=== PATIENT | female | born 1930 | race Caucasian/White ===

== ENCOUNTER 2016-08-25 10:11 | Inpatient (IN) | payer MEDICARE ==
--- NOTE | ~2016-08-25 | HP ---
History And Physical [facility] [address] [place]. [address] NAME: DREW AGUILAR : 32 STATUS : ADM IN [facility]#: [id number] AGE: 86 ADM/REG DATE : 08/25/16 MR#: [id number] REPORT SERV DATE: 08/25/16 DICTATED BY: LETY HUMMEL DATE: 08/25/16 REPORT STATUS : Draft TRANSCRIBED BY: MODL DATE: 08/25/16 DATE OF ADMISSION: 08/25/2016 CHIEF COMPLAINT: Shortness of breath. HISTORY OF PRESENT ILLNESS: Ms. Aguilar is an 86-year-old female with a history of ischemic cardiomyopathy and acute on chronic systolic and diastolic heart failure. She was evaluated in the ER earlier this morning after having a two-day history of progressive shortness of breath, orthopnea, PND, and some generalized dyspnea on exertion. She did not have peripheral edema. 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 A conservative course was elected for following this lesion and the patient has had continued significant difficulty with exacerbations of CHF which have been managed as an outpatient since that time. She also has a history of known coronary artery disease with ischemic cardiomyopathy. She has had no history of significant dysrhythmia. She has had compliance with her medications. Although her diet is somewhat significantly noncompliant with a fair bit of free water and sodium added to her diet. She denies any chest pain, palpitations, fevers, chills, significant cough, or productivity of cough. She has had no lower extremity edema. She has had no syncope or near syncope. She has diminished her Lasix dose recently to one in the morning, but she has had some significant weight gain noted as well. Overall, her shortness of breath has been consistent with a class 3 and today a class 4 [place] [employer] CHF pattern. 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 MEDICATIONS: Toprol-XL 25 mg p.o. q.a.m.; irbesartan 300 mg one p.o. q.a.m., this has recently been changed to one-half tablet per day; Plavix 75 mg p.o. q.a.m.; aspirin 81 mg p.o. q.a.m.; citalopram 40 mg per day; pantoprazole 40 mg at bedtime, Breo metered dose inhaler at one puff p.o. q.a.m.; Lasix has been 40 mg b.i.d., this has recently been changed to q.a.m. as noted. ALLERGIES: INCLUDE NKDA. SOCIAL HISTORY: She is a nonsmoker, although she has been a very distant smoker. She has not utilized alcohol. 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 She has one daughter who is an RN. FAMILY HISTORY: Positive for congestive cardiomyopathy as well as coronary artery disease History And Physical [address] [address] NAME: DREW AGUILAR : 32 STATUS : ADM IN [facility]#: [id number] AGE: 86 ADM/REG DATE : 08/25/16 MR#: [id number] REPORT SERV DATE: 08/25/16 DICTATED BY: LETY HUMMEL DATE: 08/25/16 REPORT STATUS : Draft TRANSCRIBED BY: MODL DATE: 08/25/16 and hypertension and hyperlipidemia. REVIEW OF SYSTEMS: A 10-system review is entirely negative except as noted above. PHYSICAL EXAMINATION: GENERAL: Awake, alert, oriented x4, but very fatigued in appearance overall. She is not utilizing accessory musculature. There is no audible wheeze. VITAL SIGNS: BP 132/60, pulse 52, with telemetry showing a sinus rhythm, respiratory rate 24 to 26, SaO2 88% on room air, now 97-98% on 3 L by nasal cannula O2. HEENT: PERRLA. EOMI. Oropharynx clear without evidence of thrush. EACs and TMs are negative bilaterally. NECK: Supple without mass or thyromegaly. No bruit. A right-sided incisional scar is noted, well healed. LUNGS: There is no accessory musculature use noted as evaluated above. The patient has diminished breath sounds at the left base with rales to the one-half lower lung de leon. The right lung reveals rales to the one-third lower lung de leon. There is no audible wheeze. CV: RRR without MGR. ABDOMEN: Soft, nontender. Bowel sounds normoactive. No HSM. Obese. EXTREMITIES: Without clubbing, cyanosis, edema. Pulses are diminished bilaterally at the dorsalis pedis to 1+. Posterior tibialis is trace bilaterally. Data is pending at this time. INITIAL ASSESSMENT: 1. Congestive cardiomyopathy. Acute on chronic with diastolic and systolic dysfunction secondary to ischemic cardiomyopathy, [place] [employer] class 3-4 with baseline at 2 to 3. 2. Diabetes mellitus type 2. 3. Coronary artery disease, status post PCI. 4. Peripheral vascular disease, status post right carotid endarterectomy. 5. 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 6. Hypertension. 7. CA of colon, status post resection right colon. 8. Left pleural effusion. 9. Asymptomatic cholelithiasis. 10.Obstructive sleep apnea syndrome. 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 PLAN: We will check troponin levels, CBC, CPKs, EKG, CMP. O2, diuresis carefully with Lasix, and we will add Zaroxolyn. Repeat echocardiography. Probably order CT of chest in the near future to evaluate the effusion, but we will first check chest x-ray with left lateral decubitus positioning. Continue ARB and Plavix and aspirin therapy at this time as well as beta blockade. We will discuss with family at length. History And Physical [address] [place]. [address] NAME: DREW AGUILAR : 34 STATUS : ADM IN [facility]#: [id number] AGE: 86 ADM/REG DATE : 08/25/16 MR#: [id number] REPORT SERV DATE: 08/25/16 DICTATED BY: LETY HUMMEL DATE: 08/25/16 REPORT STATUS : Draft TRANSCRIBED BY: NEO DATE: 08/25/16 CLINT/NEO Lety Hummel M.D. / [id number] CC: Lety Hummel M.D.
--- NOTE | ~2016-08-25 | CN ---
Consultation Report [facility] [address] [place]. [address] NAME: DREW AGUILAR : 32 STATUS : ADM IN PAT#: [id number] AGE: 86 ADM/REG DATE : 08/25/16 MR#: [id number] REPORT SERV DATE: 08/25/16 DICTATED BY: PK CAM DATE: 08/25/16 REPORT STATUS : Draft TRANSCRIBED BY: MODL DATE: 08/25/16 CARDIOLOGY CONSULTATION DATE OF CONSULTATION: 08/25/2016 REASON FOR CONSULTATION: Heart failure. HISTORY OF PRESENT ILLNESS: Ms. Aguilar is an 86-year-old female with known coronary artery disease and an ischemic cardiomyopathy, EF 40%-45%, who was admitted by her PCP with worsening exertional shortness of breath consistent with class III symptoms. On arrival to the ER, she was in sinus rhythm. Her BNP was elevated at 690. She was having no symptoms of chest pain/angina. She denies palpitations or syncope. She has had two to three pillow orthopnea for the past several weeks. She has had no significant lower extremity edema. She denies any palpitations, near syncope, or syncope. Of note, recent decompensation has occurred in the setting of a recent decrease in her usual home Lasix dose. REVIEW OF SYSTEMS: Pertinent positives and negatives are as outlined above, all others are negative. PAST MEDICAL HISTORY: 1. CAD/PCI. 2. Ischemic cardiomyopathy, EF 40% to 45%. 3. Chronic systolic heart failure, NYHA class II/III. 4. Hypertension. 5. Hyperlipidemia. 6. Diabetes mellitus type 2. 7. 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 8. Abnormal echocardiogram, eccentric/atypical mitral degenerative changes. CURRENT MEDICATIONS: 1. Toprol-XL 25 mg daily. 2. Irbesartan 300 mg daily. 3. Plavix 75 mg daily. 4. Aspirin 81 mg daily. 5. Citalopram as directed. 6. Pantoprazole 40 mg at bedtime. 7. Breo metered dose inhaler as directed. 8. Lasix 20 mg twice daily. ALLERGIES: NO KNOWN DRUG ALLERGIES. SOCIAL HISTORY: She does not use tobacco products or consume alcohol. FAMILY HISTORY: Significant for CAD. Consultation Report [facility] [address] [place]. [address] NAME: DREW AGUILAR : 32 STATUS : ADM IN PAT#: [id number] AGE: 86 ADM/REG DATE : 08/25/16 MR#: [id number] REPORT SERV DATE: 08/25/16 DICTATED BY: PK CAM DATE: 08/25/16 REPORT STATUS : Draft TRANSCRIBED BY: NEO DATE: 08/25/16 PHYSICAL EXAMINATION: VITALS: Temperature is afebrile, pulse is 70, respirations 16, blood pressure is 160/80. GENERAL: Well-developed female, who is somewhat uncomfortable at rest with mild dyspnea. HEENT: Sclerae anicteric, mucous membranes moist and without lesions. NECK: No jugular venous distention. No hepatojugular reflux, carotid upstrokes 2+ and symmetric, there are no carotid or subclavian bruit. LUNGS: Moderately decreased breath sounds throughout with scant expiratory wheezes and no crackles. CARDIOVASCULAR: Regular with distant S1 and S2. No audible S3. No audible murmurs. No parasternal lift. PMI is not palpable. ABDOMEN: Obese, soft, and nontender. Bowel sounds positive and normoactive. PULSES: Radial and dorsalis pedis pulses are all 1+ and symmetric. EXTREMITIES: Warm and without edema. SKIN: No clubbing or cyanosis, no rashes or lesions. ACCESSORY DATA: ECG shows sinus rhythm at 67 beats per minute. There was a nonspecific interventricular conduction delay. There is an old inferolateral infarct with anterolateral ST changes consistent with ischemia. Initial troponin was 0.09, second was 0.10. IMPRESSION: 1. Acute on chronic systolic heart failure. 2. Type 2 myocardial infarction, demand ischemic event. 3. Coronary artery disease, status post PCI. 4. Ischemic cardiomyopathy, EF 40%-45%. 5. Hypertension. 6. Diabetes mellitus, type 2. 7. Hyperlipidemia. 8. History of transient ischemic attack. PLAN: Agree with IV diuresis and Zaroxolyn, then recommend changing to p.o. Demadex 20 mg daily. We will ask respiratory therapy to eval and treat per bronchodilator protocol. Close followup with a.m. labs with aggressive diuresis and close followup of I's and O's. She has been statin intolerant, continue beta-viviana therapy, ARB, and dual antiplatelet therapy as prescribed. She will have a repeat echocardiogram to reassess cardiac dimensions and LVEF as well as atypical/eccentric mitral degenerative changes. We will continue follow with you. CARO/NEO Pk Cam M.D. Consultation Report [address] [place]. [address] NAME: DREW AGUILAR : 32 STATUS : ADM IN PAT#: [id number] AGE: 86 ADM/REG DATE : 08/25/16 MR#: [id number] REPORT SERV DATE: 08/25/16 DICTATED BY: PK CAM. DATE: 08/25/16 REPORT STATUS : Draft TRANSCRIBED BY: NEO DATE: 08/25/16 / [id number] CC: Eulalio Barger M.D.
[~2016-08-25 10:11] MED LIST: ASA5GR PO; ASAB PO; BREO ELLIPTA INH; CELEXA20 PO; CELEXA40 MG PO; CITRUCELSF; CO Q-10100 MG PO; COZ50 PO; CRESTOR10 PO; CRESTOR5 MG PO; FISH-EPA1000 MG PO; GARLIC; GLUCPH PO; Garlic PO; IRON160 MG PO; KDUR20 PO; L40 PO; LANTUS SC; LOP25 PO; LOVAZA1 GM PO; MACROBID PO; OCUVITE PO; PLAVIX PO; PRESERVISION A1 EACH PO; PRILOSEC40 MG PO; TOPXL25 PO; VITAMIN D1000 UNI1 PO; VITAMIN E; ZESTORETIC PO; ZESTORETIC1 TA1 PO; ZESTRIL20 MG PO; [UNRECOGNIZED DRUG - OTHER]; [UNRECOGNIZED DRUG - SUPPLY]
[2016-08-25 13:58] LABS: TROPONIN I 0.1 NG/ML (<0.05)
[2016-08-25 18:20] LABS: TROPONIN I 0.1 NG/ML (<0.05)
[2016-08-26 01:00] LABS: TROPONIN I 0.07 NG/ML (<0.05)
[2016-08-26 05:18] LABS: BASOPHILS 0.3 %; BASOPHILS ABSOLUTE 0.03 10/3/uL (0.0-0.16); EOSINOPHILS 0.8 %; EOSINOPHILS ABSOLUTE 0.08 10/3/uL (0.0-0.53); HEMATOCRIT 35.9 % (36.0-48.0); HEMOGLOBIN 12.2 g/dL (12.0-16.0); IMMATURE GRANULOCYTES 0.4 %; IMMATURE GRANULOCYTES ABSOLUTE 0.04 10/3/uL (0.0-0.11); LYMPHOCYTES 15.9 %; LYMPHOCYTES ABSOLUTE 1.61 10/3/uL (0.67-4.30); MEAN CORPUSCULAR VOLUME 79.4 fL (80-100); MEAN PLATELET VOLUME 9.9 fL (9.2-13.0); MONOCYTES 16.1 %; MONOCYTES ABSOLUTE 1.63 10/3/uL (0.21-1.20); NEUTROPHILS 66.5 %; NEUTROPHILS ABSOLUTE 6.73 10/3/uL (2.02-8.40); PLATELET COUNT 235 10/3/uL (150-400); RBC DISTRIBUTION WIDTH 15.5 % (12.0-16.0); RED CELL COUNT 4.52 10/6/uL (4.0-5.6); WHITE BLOOD CELLS 10.1 10/3/uL (4.5-10.5)
[2016-08-26 05:19] LABS: MANUAL DIFF NO %
[2016-08-26 05:29] LABS: CALCIUM, SERUM 8.4 MG/DL (8.5-10.4); CHLORIDE, SERUM 100 MMOL/L (96-112); CO2 (CARBON DIOXIDE) 25 MMOL/L (24-34); CREATININE 1.48 MG/DL (0.55-1.02); GFR AFRICAN AMERICAN 37 ML/MIN (>=60); GFR NON AFRICAN AMERICAN 32 ML/MIN (>=60); GLUCOSE, SERUM 149 MG/DL (60-99); POTASSIUM, SERUM 3.9 MMOL/L (3.5-5.3); SODIUM, SERUM 135 MMOL/L (135-148)
[2016-08-26 05:31] LABS: BUN (BLOOD UREA NITROGEN) 41 MG/DL (6-23)
[2016-08-27 07:04] LABS: BASOPHILS 0.5 %; BASOPHILS ABSOLUTE 0.04 10/3/uL (0.0-0.16); EOSINOPHILS 0.7 %; EOSINOPHILS ABSOLUTE 0.06 10/3/uL (0.0-0.53); HEMATOCRIT 37.6 % (36.0-48.0); HEMOGLOBIN 12.3 g/dL (12.0-16.0); IMMATURE GRANULOCYTES 0.5 %; IMMATURE GRANULOCYTES ABSOLUTE 0.04 10/3/uL (0.0-0.11); LYMPHOCYTES ABSOLUTE 0.82 10/3/uL (0.67-4.30); MANUAL DIFF NO %; MEAN CORPUS HGB CONC 32.7 g/dL (32.0-36.0); MEAN CORPUSCULAR HEMOGLOB 26.7 pg (26.0-34.0); MEAN CORPUSCULAR VOLUME 81.6 fL (80-100); MEAN PLATELET VOLUME 9.7 fL (9.2-13.0); NEUTROPHILS 71.3 %; NEUTROPHILS ABSOLUTE 5.86 10/3/uL (2.02-8.40); NUCLEATED RED BLOOD CELLS 0.2 /100WBC (0-0); PLATELET COUNT 212 10/3/uL (150-400); RBC DISTRIBUTION WIDTH 15.7 % (12.0-16.0); RED CELL COUNT 4.61 10/6/uL (4.0-5.6); WHITE BLOOD CELLS 8.2 10/3/uL (4.5-10.5)
[2016-08-27 07:18] LABS: CALCIUM, SERUM 7.9 MG/DL (8.5-10.4); CHLORIDE, SERUM 93 MMOL/L (96-112); CO2 (CARBON DIOXIDE) 21 MMOL/L (24-34); CREATININE 1.84 MG/DL (0.55-1.02); GFR AFRICAN AMERICAN 29 ML/MIN (>=60); GFR NON AFRICAN AMERICAN 25 ML/MIN (>=60); GLUCOSE, SERUM 141 MG/DL (60-99); POTASSIUM, SERUM 3.7 MMOL/L (3.5-5.3); SODIUM, SERUM 131 MMOL/L (135-148)
[2016-08-27 07:19] LABS: BUN (BLOOD UREA NITROGEN) 59 MG/DL (6-23)
[2016-08-27] MEDS ORDERED: AVAPRO300 MG PO (10:02)
[2016-08-27] MEDS ORDERED: LEVAQUIN750 MG PO (10:04)
== END 2016-08-27 13:04 | disposition home or self-care (01) | DRG 291 ==
LOC: 1SO 10:11
PROVIDERS: Internal Medicine; Internal Medicine Cardiovascular Disease
DX: I13.0 Hypertensive heart and chronic kidney disease with heart failure and stage 1 through stage 4 chronic kidney disease, or unspecified chronic kidney disease (principal); I50.43 Acute on chronic combined systolic (congestive) and diastolic (congestive) heart failure; J18.9 Pneumonia, unspecified organism; E11.22 Type 2 diabetes mellitus with diabetic chronic kidney disease; J44.9 Chronic obstructive pulmonary disease, unspecified; I73.9 Peripheral vascular disease, unspecified; I05.9 Rheumatic mitral valve disease, unspecified; I25.5 Ischemic cardiomyopathy; I25.10 Atherosclerotic heart disease of native coronary artery without angina pectoris; E78.5 Hyperlipidemia, unspecified; Z68.29 Body mass index [BMI] 29.0-29.9, adult; E66.9 Obesity, unspecified; N18.2 Chronic kidney disease, stage 2 (mild); G47.33 Obstructive sleep apnea (adult) (pediatric); K80.20 Calculus of gallbladder without cholecystitis without obstruction; F17.211 Nicotine dependence, cigarettes, in remission; Z91.19 Patient's noncompliance with other medical treatment and regimen; Z79.02 Long term (current) use of antithrombotics/antiplatelets; Z79.82 Long term (current) use of aspirin; Z79.899 Other long term (current) drug therapy; I25.2 Old myocardial infarction; Z86.73 Personal history of transient ischemic attack (TIA), and cerebral infarction without residual deficits; Z85.038 Personal history of other malignant neoplasm of large intestine; Z90.49 Acquired absence of other specified parts of digestive tract; Z98.61 Coronary angioplasty status; Z88.5 Allergy status to narcotic agent
CPT/HCPCS: 36600; 71020; 71035; 80048; 80053; 82550; 82805; 82962; 83036; 83735; 83880; 84484; 85025; 85610; 85730; 87040; 93005; 94640; 96374; 99285; A9270-GY; C8929; J2405; Q9957

== ENCOUNTER 2016-10-21 04:31 | Inpatient (IN) | payer MEDICARE ==
--- NOTE | ~2016-10-21 | CN ---
Consultation Report [facility] [address] [place]. [address] NAME: DREW REDDY : 32 STATUS : ADM IN PAT#: [id number] AGE: 86 ADM/REG DATE : 10/21/16 MR#: [id number] REPORT SERV DATE: 10/22/16 DICTATED BY: ADRIAN NEWTON DATE: 10/22/16 REPORT STATUS : Draft TRANSCRIBED BY: MODL DATE: 10/22/16 CONSULTATION NOTE DATE OF CONSULTATION: 10/21/2016 ATTENDING HELIUM ARC WELDER: Eligio Epstein M.D. ENTRY LEVEL ACCOUNT EXECUTIVE: Brandon Urena M.D. REASON FOR CONSULTATION: Chest pain, recent non-ST elevation myocardial infarction, consideration for possible coronary artery bypass grafting. CHIEF COMPLAINT: Chest pain. HISTORY OF PRESENT ILLNESS: This is an 86-year-old female, who in most of her life has been quite active, but notes that over the past five months she has had a marked decline in her exercise tolerance and has had chest discomfort, pressure, tightness, breathlessness, and fatigue that has interfered with her activities of daily living. On Thursday night, she apparently had onset of chest pain associated with nausea, vomiting, and shortness of breath. Her brought her to the hospital and she was found to have elevated troponin I and abnormal EKG with T-wave changes in the anterolateral and inferior leads. She was hospitalized, and yesterday underwent coronary arteriogram, which demonstrated significant flow-limiting three-vessel coronary artery disease with 90% right coronary artery stenosis, tandem left anterior descending 80% stenosis both before and after prior stent, and chronic total occlusion of the circumflex. She had echocardiogram which showed ejection fraction of 50% which had improved from her prior echo, and no significant valvulopathy. We were asked to see for possible coronary artery bypass grafting and associated risks. This was discussed with the patient, her and daughter in the room today. PRIOR MEDICAL HISTORY: 1. Coronary artery disease and ischemic cardiomyopathy. 2. Chronic systolic and diastolic heart failure. 3. Chronic kidney disease stage III. 4. Diabetes mellitus type 2. 5. Hyperlipidemia. 6. Hypertension. 7. History of colon cancer stage IIB, resected. 8. Cataracts. 9. Macular degeneration. 10.Frequent urinary tract infections. PRIOR SURGICAL HISTORY: Significant for prior tonsillectomy, bladder tack in 1998, previous PCI with stent to the left anterior descending in 2010, previous hysterectomy 1971, carotid endarterectomy 2008, thoracentesis in 2016, previous partial colectomy for colon cancer in Consultation Report [facility] [address] [place]. [address] NAME: DREW REDDY : 32 STATUS : ADM IN PAT#: [id number] AGE: 86 ADM/REG DATE : 10/21/16 MR#: [id number] REPORT SERV DATE: 10/22/16 DICTATED BY: ADRIAN NEWTON DATE: 10/22/16 REPORT STATUS : Draft TRANSCRIBED BY: NEO DATE: 10/22/[address] Kalpesh Ch. ALLERGIES: MORPHINE, WHICH CAUSES HER TO HAVE ITCHING AND FEEL WEIRD. MEDICATIONS: Aspirin 81 mg p.o. q.a.m., vitamin D 1000 units p.o. at bedtime, Celexa 40 mg p.o. q.a.m., clopidogrel 75 mg p.o. daily, furosemide 40 mg p.o. q.a.m., furosemide 40 mg p.o. q.48 hours at bedtime, Avapro 300 mg p.o. q.a.m., Citrucel 19 g p.o. daily, Toprol-XL 25 mg p.o. q.a.m., Prilosec 40 mg p.o. at bedtime, K-Dur 20 mEq p.o. q.a.m., Breo inhaler one puff inhaled daily, and multivitamins one p.o. b.i.d. FAMILY HISTORY: Positive for coronary artery disease, hypertension, hyperlipidemia. 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 She denies smoking history. She denies use of alcohol or illicit drugs. She has four living children, one son and three daughters. One daughter is a registered nurse. REVIEW OF SYSTEMS: GENERAL: Positive for progressive fatigue and shortness of breath, exercise intolerance, negative for fevers, chills, night sweats, recent weight loss. ENT: Positive for macular degeneration, previous cataract surgery. Denies any problems eating, chewing, or swallowing. RESPIRATORY: Positive for shortness of breath, dyspnea on exertion of walking on level ground. She denies any productive cough, she denies any hemoptysis. Denies any wheezing. CV: Positive for chest pain, tightness, pressure that radiates into her back and up into her neck, also positive for some orthopnea and prior pleural effusions and heart failure. Negative for paroxysmal nocturnal dyspnea. Negative for palpitations, negative for heart murmur. She denies any recent swelling of her lower extremities. GI: Positive for colon cancer. Negative for GI bleeding. Negative for diarrhea or constipation. : Positive for frequent urinary tract infections, chronic kidney disease followed by Dr. Brandon Urena. MUSCULOSKELETAL: Positive for arthritis. HEME/ONC: As above. Negative for blood clots or easy bleeding or bruising. ENDOCRINE: Positive for diabetes, although she denies this. VASCULAR: Positive for previous carotid endarterectomy. NEURO: Positive for prior stroke with weakness that resolved over a period of two weeks. Otherwise, negative or as above. PHYSICAL EXAMINATION: GENERAL: She is a pleasant obese white female, in no acute distress, sitting up in bed. Her height is 167.64 cm, weight 80.286 kg. VITAL SIGNS: Blood pressure 150/70, temperature 98.2, pulse 80 and regular, respirations 16 regular and unlabored. HEENT: Normocephalic, atraumatic. Pupils are equal, round, reactive to light and Consultation Report [place] [id number] [facility] [place]. [address] NAME: DREW REDDY : 32 STATUS : ADM IN [facility]#: [id number] AGE: 86 ADM/REG DATE : 10/21/16 MR#: [id number] REPORT SERV DATE: 10/22/16 DICTATED BY: ADRIAN NEWTON DATE: 10/22/16 REPORT STATUS : Draft TRANSCRIBED BY: MODL DATE: 10/22/16 accommodation. Sclerae are clear, conjunctivae pink. Oral and buccal mucosa are pink and moist, teeth are in good condition with several fillings noted. Mallampati class IV airway. NECK: Supple, no restricted range of motion, no carotid bruits, no jugular venous distention. CHEST: Clear to auscultation, no use of accessory muscles, no chest wall tenderness. She has moderate thoracic kyphosis. BREASTS: Not examined. CV: Regular rate and rhythm without murmur or rub. She has palpable and symmetric central and peripheral pulses, although pulses are moderately to severely diminished in the feet, they are palpable in the posterior tibials. No lower extremity edema, no varicosities. ABDOMEN: Soft, obese, nontender with normoactive bowel sounds. No hepatosplenomegaly. No abnormal pulsations. /RECTAL: Declined. MUSCULOSKELETAL: Moderate thoracic kyphosis, no scoliosis, no asymmetry. NEURO: She is alert, oriented, and moves all extremities. She has bilateral symmetric upper and lower extremity strength. She is able to ambulate without assistance. Her mood is appropriate and she has no focal deficits or tremors. DATA: Her coronary arteriogram which I reviewed today, echocardiogram results which do not show any evidence of prior mitral leaflet mass. Her EKG showing T-wave changes in the inferior and anterolateral leads consistent with ischemia. Her troponin I most recently was 0.73. BNP was 142.1 on admission. CBC shows WBC 6.6, hemoglobin 11.7 g, hematocrit 35.4%, platelets 219,000. Her electrolyte profile shows sodium 138, potassium 4.7, chloride 104, CO2 of 23, BUN 40, creatinine 1.72, and nonfasting glucose 1.53. Her prior hemoglobin A1c was 7. Carotid ultrasound results are pending. IMPRESSION: Three-vessel flow-limiting coronary artery disease in an 86-year-old female with multiple comorbid conditions. We were asked to see for possible coronary artery bypass grafting and associated risks. We talked with her this morning about possible coronary artery bypass grafting, usual perioperative course, indications, benefits, and serious risks, which include but are not limited to things such as bleeding, need for blood or blood product transfusion and their attendant risks, infection including deep sternal infection, mediastinitis, damage to the kidneys including kidney failure and dialysis, damage to the liver or the lungs, heart attack, stroke, abnormal heart rhythm which occurs in about 1/3 patients, and even . The Society of Thoracic Surgeons database was used for risk prediction and mortality risk was predicted at 5.351%, morbidity or mortality of 30.964% with acute kidney injury or kidney failure topping the list at approximately 20% risk. This was discussed with the patient and her family today. She would like to be discharged to home and consider her options. I encouraged her to discuss possible bypass grafting and its effect on the kidneys further with her material coordinator, Dr. Brandon Urena, and also to talk with Dr. Barger regarding his thoughts. I have taken the liberty of arranging an appointment for her to see Dr. Parsons and discuss this further on 11/27/2016 at 3 p.m. We appreciate very much the opportunity to participate in her care. Consultation Report [facility] [address] [place] [address] NAME: DREW REDDY : 32 STATUS : ADM IN PAT#: [id number] AGE: 86 ADM/REG DATE : 10/21/16 MR#: [id number] REPORT SERV DATE: 10/22/16 DICTATED BY: ADRIAN NEWTON DATE: 10/22/16 REPORT STATUS : Draft TRANSCRIBED BY: MODL DATE: 10/22/16 MSL/MODL Adrian Newton, N.P. / [id number] CC: Geena Headley M.D.
--- NOTE | ~2016-10-21 | PRECARD ---
&P [address] [address] NAME: EMMA AGUILAR : 32 STATUS : ADM [place] PAT#: [id number] AGE: 86 ADM/REG DATE : 10/21/16 MR#: [id number] REPORT SERV DATE: 10/21/16 DICTATED BY: JOSE EPSTEIN. DATE: 10/21/16 REPORT STATUS : Draft TRANSCRIBED BY: NEO DATE: 10/21/16 DATE OF ADMISSION: 10/21/2016 HISTORY OF PRESENT ILLNESS: Ms Emma Aguilar is an 86-year-old woman admitted with chest pain. Ms Aguilar has known coronary artery disease. She had a drug-eluting stent placed to the LAD in October 2010. Her most recent perfusion study found to have 15 demonstrated no ischemia. She awoke last night with chest discomfort. She had chest pressure which was similar to the discomfort she had when her stent was placed. The discomfort lasted for perhaps 4 hours. She is unable to identify any precipitating, exacerbating factors. Not associated with exertion. She has no orthopnea or PND. No palpitations. Temperature improved, though not resolved. PAST MEDICAL HISTORY: 1. Hyperlipidemia. 2. Diabetes. 3. Hypertension. 4. Prior stroke. HOME MEDICATIONS: Please see the home med list which I have reviewed: 1. Aspirin. 2. Vitamin D. 3. Celexa. 4. Plavix. 5. Lasix. 6. Avapro. 7. Methylcellulose. 8. Metoprolol. 9. Omeprazole. 10.Potassium. 11.Breo inhaler. 12.Vitamin C. SOCIAL HISTORY: No alcohol or tobacco. FAMILY HISTORY: Noncontributory. REVIEW OF SYSTEMS: A complete review of systems obtained, pertinent negative and remarkable, except as noted above and below, all systems addressed. PHYSICAL EXAMINATION: Bp: About 115/50. Heart Rate: About 70. GENERAL: Comfortable, in no acute distress. &P [address] [address] NAME: EMMA AGUILAR : 32 STATUS : ADM [place] PAT#: [id number] AGE: 86 ADM/REG DATE : 10/21/16 MR#: [id number] REPORT SERV DATE: 10/21/16 DICTATED BY: JOSE EPSTEIN DATE: 10/21/16 REPORT STATUS : Draft TRANSCRIBED BY: NEO DATE: 10/21/16 HEENT: No xanthelasma; lips without cyanosis LUNGS: Clear to auscultation, no wheezes, rales or rhonchi; good breath sounds. COR: No JVD or hepatojugular reflux, no murmurs, rubs or gallops, impulse mid clavicular line without carotid or abdominal bruits; normal S1 and S2. ABDOMEN: Bowel sounds positive, normal activity, without tenderness, masses or hepatosplenomegaly. EXTREMITIES: No edema, cyanosis. SKIN: Normal turgor. Ms: Normal muscle strength, without kyphosis/scoliosis. NEURO/PSYCH: Alert and oriented times 4, no apparent anxiety or depression. LABORATORY DATA: BUN is 40, creatinine 1.7. Troponin 0.16. BNP 142. EKG: Sinus rhythm with diffuse ST changes noted previously. ASSESSMENT: Ms. Aguilar is an 86-year-old woman with known coronary artery disease with recurrent chest discomfort. Her discomfort is similar to the prior discomfort. We will proceed with catheterization, possible angioplasty. I discussed the risks, benefits, and alternatives with Ms. gAuilar. She understands and agrees to proceed. DENNYS/NEO Jose Epstein M.D. / [id number] CC: Geena Headley M.D.
[2016-10-21 03:33] LABS: BUN (BLOOD UREA NITROGEN) 40 MG/DL (6-23); CALCIUM, SERUM 9.1 MG/DL (8.5-10.4); CHLORIDE, SERUM 104 MMOL/L (96-112); CO2 (CARBON DIOXIDE) 23 MMOL/L (24-34); CREATININE 1.72 MG/DL (0.55-1.02); GFR AFRICAN AMERICAN 31 ML/MIN (>=60); GFR NON AFRICAN AMERICAN 27 ML/MIN (>=60); GLUCOSE, SERUM 153 MG/DL (60-99); POTASSIUM, SERUM 4.7 MMOL/L (3.5-5.3); SODIUM, SERUM 138 MMOL/L (135-148)
[2016-10-21 03:34] LABS: CHEST PAIN PROFILE TAT 0 Hrs 22 Mins; TROPONIN I 0.16 NG/ML (<0.05)
[2016-10-21 04:00] LABS: BASOPHILS 1.2 %; BASOPHILS ABSOLUTE 0.07 10/3/uL (0.0-0.16); EOSINOPHILS 3.7 %; EOSINOPHILS ABSOLUTE 0.22 10/3/uL (0.0-0.53); ER CBC TAT 0 Hrs 04 MinsNP; HEMATOCRIT 38.2 % (36.0-48.0); HEMOGLOBIN 12.5 g/dL (12.0-16.0); IMMATURE GRANULOCYTES 0.3 %; IMMATURE GRANULOCYTES ABSOLUTE 0.02 10/3/uL (0.0-0.11); LYMPHOCYTES 32.5 %; LYMPHOCYTES ABSOLUTE 1.93 10/3/uL (0.67-4.30); MANUAL DIFF NO %; MEAN CORPUS HGB CONC 32.7 g/dL (32.0-36.0); MEAN CORPUSCULAR HEMOGLOB 26.3 pg (26.0-34.0); MEAN CORPUSCULAR VOLUME 80.3 fL (80-100); MEAN PLATELET VOLUME 9.4 fL (9.2-13.0); MONOCYTES 16.2 %; MONOCYTES ABSOLUTE 0.96 10/3/uL (0.21-1.20); NEUTROPHILS 46.1 %; NEUTROPHILS ABSOLUTE 2.74 10/3/uL (2.02-8.40); PLATELET COUNT 240 10/3/uL (150-400); RBC DISTRIBUTION WIDTH 15.3 % (12.0-16.0); RED CELL COUNT 4.76 10/6/uL (4.0-5.6); WHITE BLOOD CELLS 5.9 10/3/uL (4.5-10.5)
[2016-10-21 04:07] LABS: INTERNATIONAL NORMAL RATI 1.1 UNITS (-); PARTIAL THROMBO TIME 25.5 SEC (22.5-37.2); PROTIME (NOT ORD) 13.8 SEC (12.0-14.5)
[~2016-10-21 04:31] MED LIST changes: +AVAPRO300 MG PO; +LEVAQUIN750 MG PO
[2016-10-21] MEDS ORDERED: PRILOSEC40 MG PO (05:38)
[2016-10-21] MEDS ORDERED: CELEXA40 MG PO (05:38)
[2016-10-21] MEDS ORDERED: KDUR20 PO (05:38)
[2016-10-21] MEDS ORDERED: ASAB PO (05:38)
[2016-10-21] MEDS ORDERED: L40 PO ×2 (05:39→05:40)
[2016-10-21] MEDS ORDERED: AVAPRO300 MG PO (05:40)
[2016-10-21] MEDS ORDERED: VITAMIN D1000 UNI1 PO (05:41)
[2016-10-21] MEDS ORDERED: PRESERVISION A1 EAC1 PO (05:41)
[2016-10-21] MEDS ORDERED: PLAVIX PO (05:41)
[2016-10-21] MEDS ORDERED: BREO INH (05:42)
[2016-10-21] MEDS ORDERED: CITRUCELSF PO (05:43)
[2016-10-21] MEDS ORDERED: TOPXL25 PO (05:44)
[2016-10-22 06:34] LABS: BASOPHILS 0.9 %; BASOPHILS ABSOLUTE 0.06 10/3/uL (0.0-0.16); EOSINOPHILS 5.8 %; EOSINOPHILS ABSOLUTE 0.38 10/3/uL (0.0-0.53); HEMATOCRIT 35.4 % (36.0-48.0); HEMOGLOBIN 11.7 g/dL (12.0-16.0); IMMATURE GRANULOCYTES 0.2 %; IMMATURE GRANULOCYTES ABSOLUTE 0.01 10/3/uL (0.0-0.11); LYMPHOCYTES 24.8 %; LYMPHOCYTES ABSOLUTE 1.64 10/3/uL (0.67-4.30); MANUAL DIFF NO %; MEAN CORPUS HGB CONC 33.1 g/dL (32.0-36.0); MEAN CORPUSCULAR HEMOGLOB 26.5 pg (26.0-34.0); MEAN CORPUSCULAR VOLUME 80.3 fL (80-100); MEAN PLATELET VOLUME 9.5 fL (9.2-13.0); MONOCYTES 13.2 %; MONOCYTES ABSOLUTE 0.87 10/3/uL (0.21-1.20); NEUTROPHILS 55.1 %; NEUTROPHILS ABSOLUTE 3.64 10/3/uL (2.02-8.40); PLATELET COUNT 219 10/3/uL (150-400); RBC DISTRIBUTION WIDTH 15.7 % (12.0-16.0); RED CELL COUNT 4.41 10/6/uL (4.0-5.6); WHITE BLOOD CELLS 6.6 10/3/uL (4.5-10.5)
[2016-10-23 05:23] LABS: CALCIUM, SERUM 8.5 MG/DL (8.5-10.4); CHLORIDE, SERUM 110 MMOL/L (96-112); CO2 (CARBON DIOXIDE) 22 MMOL/L (24-34); GFR AFRICAN AMERICAN 48 ML/MIN (>=60); GFR NON AFRICAN AMERICAN 41 ML/MIN (>=60); GLUCOSE, SERUM 138 MG/DL (60-99); POTASSIUM, SERUM 4.7 MMOL/L (3.5-5.3); SODIUM, SERUM 138 MMOL/L (135-148)
[2016-10-23 05:30] LABS: BUN (BLOOD UREA NITROGEN) 18 MG/DL (6-23)
[2016-10-23] MEDS ORDERED: MULTIVITAMI1 PO (11:17)
[2016-10-23] MEDS ORDERED: CRESTOR10 PO (11:17)
[2016-10-23] MEDS ORDERED: NORV5 PO (11:18)
[2016-10-23] MEDS ORDERED: IMDUR30 PO (11:19)
== END 2016-10-23 14:07 | disposition home or self-care (01) | DRG 281 ==
LOC: ER 04:31 → 2SO 05:31
PROVIDERS: Internal Medicine Cardiovascular Disease; Nurse Practitioner Acute Care; Specialist
PROC: 4A023N7 Measurement of Cardiac Sampling and Pressure, Left Heart, Percutaneous Approach (ICD-10-PCS; principal; 2016-10-21)
PROC: B2111ZZ Fluoroscopy of Multiple Coronary Arteries using Low Osmolar Contrast (ICD-10-PCS; 2016-10-21)
DX: I21.4 Non-ST elevation (NSTEMI) myocardial infarction (principal); N17.9 Acute kidney failure, unspecified; E11.22 Type 2 diabetes mellitus with diabetic chronic kidney disease; I50.42 Chronic combined systolic (congestive) and diastolic (congestive) heart failure; I13.0 Hypertensive heart and chronic kidney disease with heart failure and stage 1 through stage 4 chronic kidney disease, or unspecified chronic kidney disease; N39.0 Urinary tract infection, site not specified; I25.10 Atherosclerotic heart disease of native coronary artery without angina pectoris; I25.5 Ischemic cardiomyopathy; N18.3 Chronic kidney disease, stage 3 (moderate); E78.5 Hyperlipidemia, unspecified; H26.9 Unspecified cataract; H35.30 Unspecified macular degeneration; I67.9 Cerebrovascular disease, unspecified; M19.90 Unspecified osteoarthritis, unspecified site; M40.204 Unspecified kyphosis, thoracic region; Z95.5 Presence of coronary angioplasty implant and graft; Z86.73 Personal history of transient ischemic attack (TIA), and cerebral infarction without residual deficits; Z85.038 Personal history of other malignant neoplasm of large intestine; Z98.890 Other specified postprocedural states; Z88.5 Allergy status to narcotic agent
CPT/HCPCS: 71010; 80048; 82962; 83735; 83880; 84484; 85025; 85610; 85730; 93005; 93306; 93458; 93880; 99152; 99285; A9270-GY; C1769; C1894; J2250; J3010; Q9967